=== PATIENT | male | born 2000 ===

== ENCOUNTER 2020-04-14 14:26 | Emergency (ER) | payer OTHER ==
[~2020-04-14] VITALS: Ht 177.8 cm; Wt 77.1 kg
[~2020-04-14 14:26] MED LIST: Amoxicillin500 MG PO; Amoxicillin875 MG PO; Permethrin60 GM TP
[2020-04-14] MEDS ORDERED: CEPH500 PO (15:29)
[2020-04-14] MEDS ORDERED: Bactrim Ds Tab1 EACH PO (15:29)
== END 2020-04-14 16:00 | disposition home or self-care (01) ==
LOC: ER 14:26
DX: S61.241A Puncture wound with foreign body of left index finger without damage to nail, initial encounter (principal); Z88.0 Allergy status to penicillin; Z87.891 Personal history of nicotine dependence; Z23 Encounter for immunization; W45.0XXA Nail entering through skin, initial encounter; Y92.89 Other specified places as the place of occurrence of the external cause; Y99.0 Civilian activity done for income or pay
CPT/HCPCS: 10121; 73120; 90471; 90714; 99283-25; A9270-GY

== ENCOUNTER 2020-07-12 16:19 | Emergency (ER) | payer OTHER ==
[~2020-07-12] VITALS: Ht 182.9 cm; Wt 74.8 kg
[~2020-07-12 16:19] MED LIST changes: +Bactrim Ds Tab1 EACH PO; +CEPH500 PO
[2020-07-12] MEDS ORDERED: IBUP600 PO (17:19)
== END 2020-07-12 17:35 | disposition home or self-care (01) ==
LOC: ER 16:19
DX: S62.306A Unspecified fracture of fifth metacarpal bone, right hand, initial encounter for closed fracture (principal); Z87.891 Personal history of nicotine dependence; W22.01XA Walked into wall, initial encounter
CPT/HCPCS: 29125; 73130; 99283-25